=== PATIENT | male | born 1955 | race Two or more races ===

== ENCOUNTER → 2017-11-24 | Outpatient (CLI) | payer MEDICAID, OTHER ==
[~2017-11-24] MED LIST: ALBUTEROL SULF 2.5 MG/0.5ML(0.5%) NEB SOLN ONE
== END | disposition home or self-care (01) ==
LOC: RT 08:32
PROVIDERS: ATTEND Internal Medicine Pulmonary Disease
DX: R06.02 Shortness of breath (principal)
CPT/HCPCS: 94060; 94618